=== PATIENT | male | born 1990 | race Caucasian/White ===

== ENCOUNTER → 2019-06-24 10:24 | Outpatient (CLI) | payer OTHER, SELFPAY ==
--- NOTE | ~2019-06-24 | XR_ITS ---
EXAMINATION: XR chest 2V 06/24/2019 10:41 INDICATION: Persistent cough PROCEDURE: 2 view chest COMPARISON: No prior studies for comparison. FINDINGS: The lungs are clear. The cardiomediastinal silhouette is within normal limits. There are no pleural effusions. There is no pneumothorax suspected. IMPRESSION: 1: NO ACUTE CARDIOPULMONARY DISEASE. Reviewed, dictated and finalized at location A.
== END ==
PROVIDERS: PCP Family Medicine; Visit Provider Family Medicine
DX: R05 Cough (principal); K21.0 Gastro-esophageal reflux disease with esophagitis
CPT/HCPCS: 71046

== ENCOUNTER 2020-02-06 12:31 | Outpatient (NON) | payer OTHER, SELFPAY ==
[2020-02-07 21:18] LABS: SARS-CoV-2 RNA PCR Negative
== END 2020-02-06 12:32 ==
LOC: ANHCOVIDDT 12:32
PROVIDERS: PCP Family Medicine; Visit Provider Physician Assistant Medical
DX: Z20.828 Contact with and (suspected) exposure to other viral communicable diseases (principal); R05 Cough; R51.9 Headache, unspecified; J02.9 Acute pharyngitis, unspecified
CPT/HCPCS: 87635; C9803; U0003